=== PATIENT | male | born 1985 | race Hispanic/Latino ===

== ENCOUNTER 2018-05-31 15:55 | Emergency (ER) | payer MEDICAID ==
[2018-05-31] MEDS ORDERED: TETANUS/DIPHTHERIA TOXOID [ADULT] 0.5 ML VIAL IM ONE (16:58)
== END 2018-05-31 17:30 | disposition home or self-care (01) ==
LOC: EDH 15:55
DX: S91.331A Puncture wound without foreign body, right foot, initial encounter (principal); Z72.0 Tobacco use; W45.0XXA Nail entering through skin, initial encounter; Y93.89 Activity, other specified; Y92.098 Other place in other non-institutional residence as the place of occurrence of the external cause; Y99.8 Other external cause status
CPT/HCPCS: 73620; 90471; 90714